=== PATIENT | male | born 1970 | race African-American/Black ===

== ENCOUNTER → 2020-03-29 14:45 | Outpatient (CLI) | payer OTHER, SELFPAY ==
--- NOTE | ~2020-03-29 | CT_ITS ---
EXAMINATION: CT abdomen w con DATE: 03/29/2020 15:17 INDICATION: Left renal mass follow-up TECHNIQUE: Computed tomography (CT) of the abdomen and pelvis was performed with 100 cc Omnipaque 350 intravenous contrast. Automated exposure control and iterative reconstruction technique were employe d. Exam dose: 785.99 mGy-cm total exam DLP. COMPARISON: 06/05/2018 CT abdomen pelvis FINDINGS: The lung bases are clear. Normal heart size. No pericardial or pleural effusion. The liver, gallbladder, bile ducts, spleen, pancreas and pancreatic duct as well as adrenal glands ap pear normal. Compared to 05/26/2018 the lateral lower pole left renal hypoattenuating mass with ill-defined margins has increased in size from approximately 14 x 20 mm to 18 x 25 mm currently. There is a hypoenhancing 2.6 cm mass of the posterolateral left mid kidney, increased in size from 1. 3 cm on 06/05/2018. MRI examination is recommended for further evaluation; hypernephroma of the lower pole of the left ki dney is suspected. 9 mm lower pole right renal probable cyst; correlation with MRI is recommended. Normal caliber of the abdominal aorta. No intraperitoneal or retroperitoneal mass lesion or adenopath y or ascites. Normal appendix. No bowel obstruction, bowel wall thickening, pneumatosis or intraperitoneal free air is evident. Small fat-containing umbilical hernia. Status post posterior and interbody spinal fusion at L3-4 Moderate degenerative disc disease at L5-S1. IMPRESSION: Suspected hypernephroma of lower pole of left kidney. Additional renal lesions are noted , possibly cysts. MRI of the kidneys is recommended for further evaluation. Reviewed, dictated and finalized at [facility]. Reviewed, dictated and finalized at location A. IMPRESSION: Suspected hypernephroma of lower pole of left kidney. Additional r enal lesions are noted, possibly cysts. MRI of the kidneys is recommended for f urther evaluation.
[2020-03-29 15:03] LABS: Estimated Glomerular Filt Rate > 60
== END ==
PROVIDERS: PCP Family Medicine Adolescent Medicine; Visit Provider Family Medicine Adolescent Medicine
DX: N28.89 Other specified disorders of kidney and ureter (principal)
CPT/HCPCS: 74160; Q9967

== ENCOUNTER 2020-09-27 15:32 | Outpatient (CLI) | payer OTHER, SELFPAY ==
--- NOTE | ~2020-09-27 | CT_ITS ---
EXAMINATION: CT abdomen wo/w con DATE: 09/27/2020 16:11 INDICATION: Left renal cell carcinoma TECHNIQUE: Computed tomography (CT) of the abdomen was performed without and with 100 cc Omnipaque 35 0 intravenous contrast. The dose-length product was 2053.91 mGy-cm. Automated exposure control and it erative reconstruction technique were employed. COMPARISON: CT dated 03/29/2020. FINDINGS: There is geographic hypodensity of the right hepatic lobe, likely fatty infiltration. No di screte mass is identified. There are surgical changes of the lower pole of the left kidney laterally, consistent with partial ne phrectomy. There is an additional low-density lesion lateral margin of the left kidney likely represe nting a resolving cyst. No definite evidence for residual malignancy. There is a small subcentimeter cysts at the lower pole the right kidney. Gallbladder is present. Nonobstructive bowel gas pattern. Unremarkable appendix, partially visualized. No free air or free fl uid. There are surgical changes in consistent with fusion in the lumbar spine at the L2-3 level. Mild scoliosis. No lytic or blastic lesions. Small fat-containing umbilical hernia. IMPRESSION: 1. Status post partial left nephrectomy. No evidence for residual/recurrent neoplasm. 2: Geographic hypodensity of the right hepatic lobe, likely fatty infiltration. Reviewed, dictated and finalized at location A. GENCY MANAGEMENT SPECIALIST IMPRESSION: 1. Status post partial left nephrectomy. No evidence for residual/recurrent [place] plasm. 2: Geographic hypodensity of the right hepatic lobe, likely fatty infiltration.
--- NOTE | ~2020-09-27 | CT_ITS ---
EXAMINATION: CT diagnostic chest wo con DATE: 09/27/2020 16:11 INDICATION: Left renal cell carcinoma. TECHNIQUE: Computed tomography (CT) of the chest was performed without intravenous contrast. The dose -length product was 830.35 mGy-cm. Automated exposure control and iterative reconstruction technique were employed. COMPARISON: Chest dated 08/24/2017 FINDINGS: No significant pleural or pericardial effusion. Heart size is normal. Enlarged right paratr acheal lymph node measures 1.4 cm. No axillary lymphadenopathy. Punctate calcified granuloma in the l eft upper lobe. No endobronchial lesions. No pneumothorax. Tiny 2 mm right minor fissural nodule like ly benign. No lytic or blastic lesions of the visualized osseous structures. No acute osseous abnorma lity. Mild dextroscoliosis. IMPRESSION: 1. Right minor fissural nodule measuring 2 mm, likely benign. Follow-up low dose CT chest in 12 month s recommended. 2: Mediastinal lymphadenopathy, nonspecific. This is most likely reactive, although metastatic diseas e is not excluded. Consider correlation with pet/CT scan. Reviewed, dictated and finalized at location [facility]. ARIAL SCIENCE PROFESSOR IMPRESSION: 1. Right minor fissural nodule measuring 2 mm, likely benign. Follow-up low dos e CT chest in 12 months recommended. 2: Mediastinal lymphadenopathy, nonspecific. This is most likely reactive, alth ough metastatic disease is not excluded. Consider correlation with pet/CT scan.
[2020-09-27 16:02] LABS: Estimated Glomerular Filt Rate > 60
== END 2020-09-27 15:33 | disposition home or self-care (01) ==
LOC: ANHIMG 15:36
PROVIDERS: PCP Family Medicine Adolescent Medicine; Visit Provider Urology
DX: C64.2 Malignant neoplasm of left kidney, except renal pelvis (principal)
CPT/HCPCS: 71250; 74170; Q9967

== ENCOUNTER 2020-10-31 13:35 | Outpatient (CLI) | payer OTHER, SELFPAY ==
--- NOTE | ~2020-10-31 | PE_ITS ---
EXAMINATION: PET skull to mid thigh DATE: 10/31/2020 15:30 INDICATION: Mediastinal lymphadenopathy. TECHNIQUE: Blood glucose level was 103 mg/dL. 10.853 mCi of 18-fluorodeoxyglucose (18-FDG) was admini stered i.v. Low dose computed tomography (CT) images were acquired from the base of the brain to the proximal thighs for attenuation correction and anatomic localization. Automated exposure control was employed. Dose-length product (DLP) was 1243 mGy-cm. Positron emission tomography (PET) images were a cquired in the same distribution. COMPARISON: Chest and abdomen CT 09/27/2020 FINDINGS: Head/neck: There is increased activity in the oral cavity, oropharynx, and glottis, and major salivar y glands without CT correlate, likely physiologic. There are no pathologically enlarged lymph nodes. Chest: The lungs demonstrate mild atelectasis. No pleural effusion. A right paratracheal node measur es 3.0 x 1.4 cm without increased activity. Cardiomegaly is noted. No pericardial effusion. There is increased activity in the bone marrow without CT correlate, likely bone marrow stimulation. Abdomen/pelvis/proximal thighs: The liver, gallbladder, spleen, pancreas, adrenal glands, and right k idney are normal. There are changes of partial left nephrectomy. There are no dilated loops of bowel. The appendix is normal. There is an umbilical hernia containing fat. Prominent fat in the inguinal c anals may be small hernias. There are no pathologically enlarged lymph nodes. There is no free intrap eritoneal fluid. The prostate is mildly enlarged. There is scarring versus inflammation in the left a nterior wall subcutaneous fat. There are changes of posterior and anterior fusion procedures in lumba r spine. There is increased activity in the bone marrow without CT correlate, likely bone marrow stim ulation. IMPRESSION: 1. Mildly enlarged mediastinal lymph node without increased activity, likely reactive. Reviewed, dictated and finalized at location A. IMPRESSION: 1. Mildly enlarged mediastinal lymph node without increased activity, likely re active.
[2020-10-31 14:01] LABS: Glucose Point of Care 103 (65-105)
== END 2020-10-31 13:36 | disposition home or self-care (01) ==
PROVIDERS: PCP Family Medicine Adolescent Medicine; Visit Provider Urology
DX: R59.1 Generalized enlarged lymph nodes (principal)
CPT/HCPCS: 78815; 82948; A9552

== ENCOUNTER 2021-10-01 14:54 | Observation (INO) | payer OTHER, SELFPAY ==
[2021-10-01] VITALS (9 sets, daily range): BP systolic 143–193; BP diastolic 84–116; PULSE 84–109; RESP 12–18; TEMP 36.4–36.7; O2SAT 96–98; BMI 35.9
--- NOTE | ~2021-10-01 | XR_ITS ---
EXAMINATION: XR chest 2V DATE: 10/01/2021 15:34 INDICATION: Dizziness. Chest wall pressure. TECHNIQUE: Frontal and lateral views of the chest were obtained. COMPARISON: Chest 2 views 08/24/2017, PET CT 10/31/2020 FINDINGS: The chest demonstrates clear lungs without pneumonia, pleural effusion, or pneumothorax. Th e heart size is normal. IMPRESSION: 1. No acute cardiopulmonary disease. Reviewed, dictated and finalized at location A.
--- NOTE | ~2021-10-01 | NM_ITS ---
EXAMINATION: NM miriam stress w perfusion DATE: 10/02/2021 14:23 INDICATION: Chest pain. TECHNIQUE: Rest images were obtained following intravenous administration of 10.3 mCi Tc99m tetrofosm in (Myoview). The patient was infused intravenously with Lexiscan (regadenoson). Then, 32.8 mCi Tc99m tetrofosmin (Myoview) was administered intravenously, and stress images were obtained. Data was carolyn nstructed into short axis and horizontal and vertical long axis SPECT images. Gated SPECT images were also obtained. COMPARISON: CT abdomen 09/27/2020 FINDINGS: There is no definite reversible or fixed perfusion abnormality to suggest ischemia or infar ction. There is no segmental wall motion abnormality. Left ventricular ejection fraction measures 6 1%. IMPRESSION: 1. No definite ischemia or infarct. 2. Normal left ventricular ejection fraction measuring 61%. Reviewed, dictated and finalized at location A.
--- NOTE | ~2021-10-01 | CT_ITS ---
EXAMINATION: CT brain wo con DATE: 10/01/2021 16:18 INDICATION: Dizziness. Headache. TECHNIQUE: Computed tomography (CT) of the head was performed without intravenous contrast. The mA wa s adjusted according to patient size. Iterative reconstruction technique was employed. The dose-lengt h product was 605.33 mGy-cm. COMPARISON: None FINDINGS: There are scattered areas of low attenuation in the cerebral white matter. There is no intr acranial hemorrhage, acute infarction, or abnormal intracranial mass lesion. The ventricles are kadeem l in size. There is mild mucosal thickening in the paranasal sinuses. The orbits are normal. The mast oid air cells are normal. IMPRESSION: 1. Mild nonspecific cerebral white matter disease, which likely represents chronic small vessel ische j luis disease. Reviewed, dictated and finalized at location A. IMPRESSION: 1. 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
--- NOTE | 2021-10-01 15:04 | ECG_ITS ---
Measurements Intervals [place] Rate: 101 P: 37 TX: 200 QRS: -3 QRSD: 89 T: 30 QT: 310 QTc: 402 Interpretive Statements SINUS TACHYCARDIA MODERATE VOLTAGE CRITERIA FOR LVH, CONSIDER NORMAL VARIANT [MEETS CRITERIA IN ONE OF: R(aVL), S(V1), R(V5), R(V5/V6)+S(V1)] NONSPECIFIC T-WAVE ABNORMALITY ABNORMAL RHYTHM ECG COMPARED TO ECG 01/31/2019 05:09:28 SINUS TACHYCARDIA NOW PRESENT T-WAVE ABNORMALITY NOW PRESENT Electronically Signed On 10-01-2021 20:28:40 CDT by Emi Arias M.D.
[2021-10-01 15:30] LABS: Basophils Absolute Auto 0.1 K/mm3 (0.0-0.1); Basophils Percent Auto 0.8 % (0.2-1.2); Eosinophils Absolute Auto 0.1 K/mm3 (0-0.3); Eosinophils Percent Auto 1.8 % (0-4.4); Hematocrit 41.3 % (42.0-52.0); Hemoglobin 14.8 g/dL (14.0-18.0); Immature Granulocyte Absolute 0.07 K/mm3 (0.00-0.031); Immature Granulocyte Percent A 1.1 % (0-0.5); Lymphocytes Absolute Auto 1.91 K/mm3 (0.9-3.2); Lymphocytes Percent Auto 29.4 % (18.3-44.2); Mean Corpuscular HGB Conc 35.8 g/dl (32-36); Mean Corpuscular Hemoglobin 30.6 pg (26-34); Mean Corpuscular Volume 85.5 fl (80-100); Mean Platelet Volume 10.1 fl (7.4-10.4); Monocytes Absolute Auto 0.6 K/mm3 (0.1-0.6); Monocytes Percent Auto 8.6 % (2.6-8.5); Neutrophils Absolute Auto 3.8 K/mm3 (1.3-6.7); Neutrophils Percent Auto 58.3 % (45.5-73.1); Nucleated Red Blood Cells Perc 0.6 % (0.0-0.2); Platelet Count Result 269 k/mm3 (150-375); Red Blood Count 4.83 M/mm3 (4.6-6.20); White Blood Count 6.5 K/mm3 (4.5-10.0)
[2021-10-01 15:38] LABS: Prothrombin Time 12.6 Seconds (11.1-14.7)
[2021-10-01 15:40] LABS: Alanine Aminotransferase 29 U/L (4-50); Albumin Level 4.6 g/dL (3.5-5.1); Alkaline Phosphatase 68 U/L (38-126); Anion Gap 8 mmol/L (8-16); Aspartate Amino Transferase 28 U/L (17-59); Bilirubin,Total 0.6 mg/dL (0.2-1.3); Blood Urea Nitrogen 14 mg/dL (9-20); Calcium 9.2 mg/dL (8.4-10.2); Carbon Dioxide 26 mmol/L (22-30); Chloride 104 mmol/L (98-107); Estimated CRCL calculation 98 ml/min; Estimated Glomerular Filt Rate > 60; Glucose 174 mg/dL (65-110); Lipase 93 U/L (23-300); Potassium 3.8 mmol/L (3.4-5.0); Sodium 138 mmol/L (137-145)
[2021-10-01 15:52] LABS: Troponin I 0.023 ng/mL (0.000-0.034)
[2021-10-01] MEDS: ASPIRIN 81 MG CHEWABLE TABLET 324 MG PO (15:52)
--- NOTE | 2021-10-01 16:39 | ED.GENADULT ---
HPI - General Adult General Chief complaint: Dizziness Stated complaint: htn Time Seen by Provider: 10/01/21 15:36 Source: patient, RN notes reviewed and old records reviewed Mode of arrival: ambulatory Limitations: no limitations History of Present Illness HPI narrative: This is a 51 year old male with history of hypertension and hyperlipidemia who presents for evaluation of elevated blood pressure, headache and chest pain. Patient states over the past 2 weeks he has felt off. He reports dull headache behind his eye and in posterior. His headache was more noticeable today so he checked his blood pressure. His blood pressure was evaluated to 160/110 so he was told to come to ER. He his headache has been constant but he states he just thought it was due to work. He also has left anterior chest pain over past few weeks. He states this pain is more noticeable with walking up stairs at home. He denies having chest pain now but he does has headache. HE denies associated nausea, vomiting, blurred vision, focal weakness. He rates headache as 7/10. He also notes his brother recently required coronary stent to be placed. Related Data Home Medications Medication Instructions Recorded Confirmed lisinopril 10 mg PO HS 10/01/21 10/01/21 pravastatin 80 mg PO HS 10/01/21 10/01/21 Allergies Allergy/AdvReac Type Severity Reaction Status Date / Time No Known Allergies Allergy Mild Verified 10/01/21 15:48 Review of Systems Review of Systems: All systems reviewed & are unremarkable except as noted in HPI and below Constitutional: Constitutional: Denies weakness Eyes: Eyes: Denies change in vision and Denies photophobia ENT: Denies nasal congestion Cardiovascular: Cardiovascular: Reports chest pain and Denies radiating jaw, neck or arm pain Respiratory: Respiratory: Denies cough and Denies dyspnea Gastrointestinal: Gastrointestinal: Denies abdominal pain, Denies diarrhea, Denies nausea and Denies vomiting Neurologic: Reports dizziness, Reports headache(s), Denies numbness and Denies weakness PMFSH Past Medical History Medical History Chronic low back pain History of renal cell cancer Hypertension Obstructive sleep apnea Pure hypercholesterolemia, unspecified Surgical History Surgical History History of lumbar surgery decompression History of vasectomy Social History Social History (Updated 10/01/21 @ 19:15 by Dana Oneal MD) Smoking status: Never smoker Exam Narrative: GENERAL: Well-appearing, well-nourished, and in no acute distress. HEAD: Normocephalic, atraumatic EYES: PERRLA and EOMI, conjunctiva clear without discharge EARS: TM's clear bilaterally without erythema or dullness NOSE: Nares clear, no rhinorrhea or epistaxis THROAT:Mucous membranes moist, Oropharynx normal without erythema, exudate, peritonsillar swelling or fluctuance NECK: Supple, without lymphadenopathy or mass RESPIRATORY: No respiratory distress, Airway patent, Respirations non-labored, Clear to auscultation without rales, rhonchi or wheeze HEART: Regular rate and rhythm. No murmur heard. Normal peripheral pulses. ABDOMEN: Soft, nontender, nondistended, normal active bowel sounds. No masses. No rebound or guarding, No organomegaly. EXTREMITIES: No edema, normal strength with full range of motion. SKIN: Warm, dry, normal color without rash NEURO: Alert and oriented x3. CN 2-12 grossly intact. No focal deficits. PSYCH: Normal mood and affect. Course Reevaluation(s) Reevaluation #1: Patient is resting comfortably. He has no complaints. He states his headache has resolved. He is agreeable to admission given high heart score for further evaluation. I Discussed case with hospitalist who accept for admission. Date: 10/01/21 Time: 17:30 Consultations Consultation #1: I discussed case with Dr. Hugo freeman
[2021-10-01 18:22] LABS: Troponin I 0.017 ng/mL (0.000-0.034)
--- NOTE | 2021-10-01 20:05 | ADMGEN ---
This patient, Bam Hui, was admitted to [facility] at 2004 as an IMU overflow. Patient/family oriented to hospital policies and general routines including ID bracelet, bed and alarms, visiting hours, pain management, procedures, bathroom and other care routines, personal items, smoking policy, room service/diet, and visiting hours. Information on how to activate the Rapid Response Team has been discussed. Patient/Family are encouraged to report perceived risks to care and to ask questions if they do not understand what they are told or what they should do.
--- NOTE | 2021-10-01 20:42 | PM.IMHP ---
H&P: HPI History of Present Illness Date/Time: 10/01/21 20:42 Chief Complaint: Chest pain. Narrative: This is a 51-year-old male with past medical history significant for dyslipidemia, hypertension. Patient presents to the emergency room due to chest pain located in the precordial area with radiation to the back in between the scapulas denies any radiation to the neck or jaw O or shoulder or left arm this happened while the patient was sitting by his computer and he was in a meeting, he denies any nausea, vomiting with it any palpitations, he was lightheaded ,no shortness of breath ,no cough ,no sputum production, no fevers, no rigors, no chills, he has been having a daily headache for the last 2 weeks or so and his blood pressure has been not well controlled. Preliminary workup was significant for blood pressure 160/100 rest of the workup has been essentially nonrevealing. Review of Systems Review of Systems: Patient presents to the emergency room due to chest pain, lightheadedness and headache Constitutional: Constitutional: Denies chills, Denies fever(s), Reports headache(s), Denies malaise and Denies night sweats Eyes: Eyes: Denies change in vision ENT: Denies dysphagia, Denies vertigo, Denies dizziness, Denies nasal discharge, Denies nasal obstruction and Denies odynophagia Cardiovascular: Cardiovascular: Reports chest pain at rest, Denies pedal edema, Denies claudication, Denies leg edema, Reports lightheadedness, Denies radiating jaw, neck or arm pain, Denies palpitations, Denies dyspnea, Denies dyspnea on exertion and Denies orthopnea Respiratory: Respiratory: Denies cough, Denies dyspnea and Denies wheezing Gastrointestinal: Gastrointestinal: Denies abdominal pain, Denies dyspepsia, Denies heartburn, Denies diarrhea, Denies nausea and Denies vomiting Genitourinary: Genitourinary: Denies dysuria and Denies flank pain Musculoskeletal: Musculoskeletal: Denies back pain, Denies arthralgias, Denies joint swelling and Denies muscle weakness Integumentary/Breasts: Skin/Breast: Denies rash Neurologic: Denies vertigo, Denies dizziness, Denies syncope, Denies focal weakness, Denies loss of vision and Denies Sensory deficit (Neuro) Psychiatric: Psychiatric: Reports no additional psychiatric complaints and Reports as per HPI Endocrine: Endocrine: Denies cold intolerance, Denies heat intolerance, Denies polyphagia, Denies polydipsia and Denies palpitations Allergic/Immunologic: Allergic/Immunologic: Reports no additional allergic/immunologic complaints and Reports as per HPI PMFSH Past Medical History Medical History Chronic low back pain History of renal cell cancer Hypertension Obstructive sleep apnea Pure hypercholesterolemia, unspecified Surgical History Surgical History History of lumbar surgery decompression History of vasectomy Family History Family History (Updated 10/01/21 @ 20:22 by Eveline Sen RN) Father Interstitial lung disease Hypertension Sibling Hypertension Post PTCA Mother Hypertension Post PTCA Myocardial infarct Social History Social History (Updated 10/01/21 @ 19:15 by Dana Oneal MD) Smoking status: Never smoker Alcohol intake: current Drinks per week: 1 Substance use: never Substance use type: does not use Spiritual care concerns: No Meds Home Medications and Allergies Home Medications Medication Instructions Recorded Confirmed Type testosterone cypionate 200 mg/mL 400 mg IM .every three weeks #8 ml 08/22/21 10/01/21 Rx intramuscular oil needle (disp) 21 G 21 gauge x 1 #3 ea 09/19/21 Rx 1/2 syringe with needle 3 mL 18 x 1 #3 ea 09/19/21 Rx 1/2 lisinopril 10 mg PO HS 10/01/21 10/01/21 History pravastatin 80 mg PO HS 10/01/21 10/01/21 History Allergies Allergy/AdvReac Type Severity Reaction Status Date / Time No Kno
[2021-10-01 21:19] LABS: Troponin I 0.023 ng/mL (0.000-0.034)
[2021-10-02] VITALS (13 sets, daily range): BP systolic 139–184; BP diastolic 89–100; PULSE 67–100; RESP 12–18; TEMP 36.2–37.1; O2SAT 95–98
--- NOTE | 2021-10-02 06:00 | ECHO_ITS ---
Patient Info Name: Bam Hui Age: 51 years : 1970 Gender: Male Ht: 76 in Wt: 295 lbs BSA: 2.72 m2 HR: 78 bpm BP: 152 / 89 mmHg Heart Rhythm: Sinus Rhythm Technical Quality: Good Exam Date: 10/02/2021 11:35 AM Exam Location: [facility] Exam Room: [facility] Patient Status: Inpatient Admit Date: 10/01/2021 Staff Ordering Physician: Dana Oneal MD [place] Worker: Pamela Rosas RDCS Attending Provider: Mar Raygoza PA-C Referring Physician: Kimmy CLEMENTS; Exam Type: CA echo doppler color flow Study Info Indications - CHEST PAIN Complete two-dimensional, color flow and Doppler transthoracic echocardiogram is performed. Summary 1. Complete two-dimensional, color flow and Doppler transthoracic echocardiogram is performed. 2. Normal left ventricular size with borderline hypertrophy. Good systolic function of all segments. Estimated ejection fraction 60-65%. No segmental wall motion abnormalities. Normal diastolic function. 3. No significant valve disease. 4. Normal sinus rhythm. Left Ventricle Left ventricular chamber dimension is normal. Left ventricular systolic function is normal, estimated at 60-65%. There is no increased left ventricular wall thickness. Left ventricular septal wall motion is normal. The left ventricular diastolic function is normal. Right Ventricle Right ventricular chamber dimension is normal. Right ventricular systolic function is normal. Left Atria Left atrial chamber dimension is normal. Right Atria Right atrial chamber dimension is normal. Aortic Valve The aortic valve is trileaflet. There is no aortic valve sclerosis. There is no aortic valve stenosis. There is no aortic valve regurgitation. Pulmonic Valve The pulmonic valve is normal. There is no pulmonic valve stenosis. There is trace pulmonic regurgitation. Mitral Valve The mitral valve has normal leaflets. There is no mitral valve stenosis. There is no mitral valve regurgitation. Tricuspid Valve The tricuspid valve leaflets are normal. There is no significant tricuspid valve stenosis. There is trace tricuspid valve regurgitation. No pulmonary hypertension, estimated pulmonary arterial systolic pressure is 26 mmHg. Pericardium/Pleural The pericardium appears normal. There is no pericardial effusion. Inferior Vena Cava Normal inferior vena cava with >50% collapse upon inspiration consistent with Empty right atrial pressure, 10 mmHg. Aorta The aortic root size at the sinus of Valsalva is normal. The prox ascending aorta size is normal. Left Ventricular Outflow Tract Name Value Normal LVOT 2D LVOT Diameter 2.2 cm LVOT Doppler LVOT Peak Gradient 3 mmHg LVOT Mean Gradient 2 mmHg LVOT VTI 17 cm LVOT VTI/AV VTI Ratio 0.8 LVOT Stroke Volume 66 ml LVOT CO 15.7 l/min LVOT CI 5.8 l/min/m2 Pulmonic Valve
--- NOTE | 2021-10-02 10:00 | PM.CNCAR ---
Assessment and Plan Additional Plan -chest pain -uncontrolled hypertension -history of hyperlipidemia -obstructive sleep apnea on CPAP -strong family history of CAD This is 51-year-old patient who presents with left chest pain, elevated blood pressure. He only takes lisinopril 10 mg daily at home. Reports strong family history of CAD. Troponins negative however EKG shows inferior Q-waves. At this time will order Lexiscan stress test to rule out ischemia. Avoid exercising due to elevated blood pressures at this time. We will add nifedipine 30 mg daily extended release titrated up as tolerated to control his blood pressure. History of Present Illness History of Present Illness Consult date/time: date of service 10/02/21 10:00 Requesting physician: Dana Oneal MD Consult reason: hypertension Reason For Visit: Hypertensive urgency, L chest pain Narrative: This is 51-year-old patient past history of hypertension, hyperlipidemia Blood pressure on admission 166/100 has been elevated during hospital stay. He states that he had headache for the last couple weeks however for the last couple days got much worse and was associated with dizziness. He was at work and was having left chest discomfort as blood pressure was elevated and therefore was advised to leave work and go and seek medical advice. He states that this left chest pain has been intermittent for the last few months. Sometimes it happens when he goes up steps. Which no radiation. Denies shortness of breath, palpitations, lower extremity edema. Never smoked cigarettes. Drinks alcohol socially. He states that heart disease runs on his mom's side and actually his brother had a stent a month ago Troponin 0.023, 0.017, 0.023 Serum creatinine 0.6 EKG reviewed analyze myself shows sinus tachycardia, LVH, inferior Q-waves Review of Systems Constitutional: Constitutional: Denies chills, Denies fever(s) and Denies poor appetite Eyes: Eyes: Denies eye discharge, Denies loss of vision, Denies eye pain and Denies photophobia ENT: Denies dizziness, Denies epistaxis, Denies nasal congestion and Denies sore throat Cardiovascular: Cardiovascular: Reports chest pain, Denies syncope, Denies pedal edema, Denies leg edema, Denies palpitations, Denies dyspnea, Denies dyspnea on exertion and Denies orthopnea Respiratory: Respiratory: Denies cough, Denies dyspnea, Denies dyspnea on exertion and Denies wheezing Gastrointestinal: Gastrointestinal: Denies abdominal pain, Denies diarrhea, Denies nausea and Denies vomiting Genitourinary: Genitourinary: Denies hematuria, Denies genital lesions and Denies dysuria Musculoskeletal: Musculoskeletal: Denies arthralgias, Denies joint swelling and Denies numbness Integumentary/Breasts: Skin/Breast: Denies pruritus and Denies rash Neurologic: Reports dizziness, Denies syncope, Denies loss of vision and Denies numbness Psychiatric: Psychiatric: Denies anxiety and Denies depression Endocrine: Endocrine: Denies cold intolerance, Denies heat intolerance and Denies palpitations Hematologic/Lymphatic: Hematologic/Lymphatic: Denies easy bleeding and Denies easy bruising Allergic/Immunologic: Allergic/Immunologic: Denies urticaria and Denies wheezing PMFSH Past Medical History Medical History (Updated 10/09/21 @ 07:11 by Alvino Schuster MD) Chronic low back pain History of renal cell cancer Hypertension Obstructive sleep apnea Pure hypercholesterolemia, unspecified Surgical History Surgical History (Updated 10/09/21 @ 07:18 by Alvino Schuster MD) History of lumbar surgery decompression History of partial nephrectomy 06/07 Left Renal cancer History of vasectomy Family History Family History Father Interstitial lung disease Hypertension Sibling Hypertension Post PTCA Mother Hypertension Post PTCA Myocardial infarct Social History Social History (
[2021-10-02] MEDS: ENOXAPARIN 40 MG/0.4 ML SYRINGE SUB-Q ×2 (10:05→10:16)
[2021-10-02] MEDS: ASPIRIN 81 MG CHEWABLE TABLET PO ×2 (10:05→10:16)
--- NOTE | 2021-10-02 10:16 | EST_ITS ---
Patient Info Name: Bam Hui Age: 51 years : 1970 Gender: Male Ht: 76 in Wt: 312 lbs BSA: 2.80 m2 Exam Date: 10/02/2021 12:53 PM Exam Location: [facility] Stress Patient Status: Inpatient Admit Date: 10/01/2021 Staff Ordering Physician: Fan Cunningham MD Attending Provider: Mar Raygoza PA-C Exercise Technologist: Lisa Childs RDCS Exercise Physician: Javan Piña DO Exam Type: CA stress miriam w NM Study Info Indications R07.9 - Chest pain, unspecified A regadenoson stress test was performed. Summary 1. No abnormal ST-T wave changes with lexiscan. 2. Nuclear test results to follow. 3. Resting hypertension. Protocol: Lexiscan Stress ECG Details Stage: REST Duration (min): 5 min : 47 sec HR (bpm): 86 SBP (mmHg): 144 DBP (mmHg): 105 Stage: REST Duration (min): 9 min : 52 sec HR (bpm): 103 SBP (mmHg): 144 DBP (mmHg): 105 Stage: STAGE 1 Duration (min): 0 min : 59 sec HR (bpm): 117 SBP (mmHg): 167 DBP (mmHg): 102 Stage: RECOVERY Duration (min): 1 min : 0 sec HR (bpm): 105 SBP (mmHg): 186 DBP (mmHg): 92 Stage: RECOVERY Duration (min): 2 min : 0 sec HR (bpm): 99 SBP (mmHg): 186 DBP (mmHg): 92 Stage: RECOVERY Duration (min): 3 min : 0 sec HR (bpm): 102 SBP (mmHg): 147 DBP (mmHg): 96 Stage: RECOVERY Duration (min): 3 min : 12 sec HR (bpm): 100 SBP (mmHg): 147 DBP (mmHg): 96 Rest HR: 103 bpm Peak HR: 121 bpm Rest Sys BP: 144 mmHg Peak Sys BP: 186 mmHg Max Pred HR: 170 bpm % Max Pred HR: 71 % Target HR: 145 bpm Max RPP: 22,506 bpm*mmHg BP Response: Patient exhibited a hypertensive response with stress Termination Reason: Completed protocol Cardiac Symptoms: None Total Time: 1 min : 0 sec Rest Romero BP: 105 mmHg Peak Romero BP: 92 mmHg Total Dose: 0.4 mg Resting ECG Normal sinus rhythm - normal ECG. Stress ECG No abnormal ST/T wave changes with exercise. Arrhythmias Occasional PVCs. Report Signatures
[2021-10-02] MEDS: NIFEdipine 30 MG TAB.ER.24 PO (10:59)
--- NOTE | 2021-10-02 15:42 | PM.IMPN ---
Progress Note: A&P Assessment and Plan (1) Chest pain: Code(s): R07.9 - Chest pain, unspecified Status: Acute Assessment and Plan: Presented with tightness in the left-sided chest wall Troponins are negative Appreciate cardiology consultation Echocardiogram is pending Q-waves noted on EKG Lexiscan stress test completed this afternoon, awaiting interpretation Aspirin 81 mg daily (2) Acute headache: Code(s): R51.9 - Headache, unspecified Status: Acute Assessment and Plan: Presented with headache ongoing for 2 weeks behind bilateral eyes and in occipital region Suspect this is secondary to uncontrolled hypertension Head CT showed mild nonspecific white matter disease with no acute findings including hemorrhage, infarct, lesion Acetaminophen as needed (3) Hypertension: Code(s): I10 - Essential (primary) hypertension Status: Chronic Assessment and Plan: Blood pressures were markedly elevated on presentation up to 190 systolic over 110s diastolic Patient has been compliant with his low-dose lisinopril 10 mg daily Continue lisinopril Started on nifedipine 30 mg daily per Cardiology recommendations. Up titrate as needed for BP control Blood pressures are improving. This afternoon, most recent BP 139/96 (4) Obstructive sleep apnea: Code(s): G47.33 - Obstructive sleep apnea (adult) (pediatric) Status: Chronic Assessment and Plan: Maintained on CPAP (5) Pure hypercholesterolemia, unspecified: Code(s): E78.00 - Pure hypercholesterolemia, unspecified Status: Chronic Assessment and Plan: Continue pravastatin Subjective Date/time seen: 10/02/21 15:42 Interval history: Date of service: 10/02/2021 Bam Hui is a 51-year-old male with a history of hypertension, PAULINE on CPAP, hyperlipidemia, and renal cell carcinoma s/p partial nephrectomy who is seen in follow-up for headache and chest pain. The patient states that he has had a low-grade headache ongoing for 2 weeks behind both eyes and in the a septal region. He states that worsened over the past 3 days and he had an episode of lightheadedness with this. He also complained of a muscle spasm between shoulder blades. He denies chest pain. Denies arm pain or jaw pain. No dizziness or lightheadedness. He does note that occasionally with small burst of activity such as hustling up a flight of steps, he will have tightness and discomfort in his left pectoral region. He also states that since May 2021 with the onset of a COVID surge, he stopped going to the gym and has since gained about 20 lb. He has become stressed regarding negative health effects from lack of exercise and weight gain and feels that he needs to get back to his old habits of exercise and dietary modifications. At this time his headache has improved but he still describes a foggy sensation and tightness, stating ?something is just off.? Denies visual changes including double vision or tunnel vision. No dysphagia. No speech changes. No palpitations. Review of Systems Review of Systems: All systems reviewed & are unremarkable except as noted in HPI and below Exam Narrative: General: Well-nourished, well-appearing 51 year-old male, sitting up in bed, comfortable, NARD Neuro: awake, alert and oriented x4, speech clear, no focal neuro deficits noted HEENMT: normocephalic, atraumatic, EOMI, sclerae anicteric, moist oral mucosa Respiratory: clear to auscultation bilaterally, nonlabored breathing Cardio: regular rate, regular rhythm with S1-S2 Abdomen: nondistended, normoactive bowel sounds, soft, nontender to palpation Extremities: no edema, erythema, or tenderness to palpation, DP pulses 2+ bilaterally Skin: no rashes or lesions, warm and dry Psych: Pleasant and cooperative, appropriate mood and affect, judgment and insight intact Objective Data Vital Signs Vital Signs: Vital Sign
[2021-10-02] MEDS: PRAVASTATIN SODIUM 20 MG TABLET 80 MG PO (21:04)
[2021-10-02] MEDS: lisinopriL 10 MG TABLET PO (21:04)
[2021-10-03] VITALS: PULSE 86; RESP 18; O2SAT 96
[2021-10-03 01:50] VITALS: PULSE 86; O2SAT 96
[2021-10-03 02:00] VITALS: PULSE 74
[2021-10-03 04:00] VITALS: BP 133/89; PULSE 74; PULSE 85; RESP 18; TEMP 36.1; O2SAT 98
[2021-10-03 05:55] LABS: Hematocrit 43.3 % (42.0-52.0); Mean Corpuscular HGB Conc 34.6 g/dl (32-36); Mean Corpuscular Hemoglobin 30.4 pg (26-34); Mean Corpuscular Volume 87.7 fl (80-100); Mean Platelet Volume 9.7 fl (7.4-10.4); Platelet Count Result 247 k/mm3 (150-375); Red Blood Count 4.94 M/mm3 (4.6-6.20); Red Cell Distribution Width 14.1 % (11.5-14.5); White Blood Count 6.3 K/mm3 (4.5-10.0)
[2021-10-03 06:00] VITALS: PULSE 78
[2021-10-03 06:02] LABS: Anion Gap 7 mmol/L (8-16); Blood Urea Nitrogen 12 mg/dL (9-20); Calcium 8.5 mg/dL (8.4-10.2); Carbon Dioxide 29 mmol/L (22-30); Chloride 101 mmol/L (98-107); Estimated CRCL calculation 101 ml/min; Estimated Glomerular Filt Rate > 60; Glucose 102 mg/dL (65-110); Potassium 3.9 mmol/L (3.4-5.0); Sodium 137 mmol/L (137-145)
[2021-10-03 08:00] VITALS: BP 126/84; PULSE 84; PULSE 85; RESP 18; TEMP 36.1; O2SAT 98
[2021-10-03] MEDS: ASPIRIN 81 MG CHEWABLE TABLET PO (09:06)
[2021-10-03] MEDS: NIFEdipine 30 MG TAB.ER.24 PO (09:06)
[2021-10-03] MEDS: ENOXAPARIN 40 MG/0.4 ML SYRINGE SUB-Q (09:07)
--- NOTE | 2021-10-03 10:29 | PM.DS ---
DS: Admitting Diagnosis Discharge Date 10/03/2021 Admitting Diagnosis Chest pain DS: Discharge Diagnosis Discharge Diagnosis (1) Chest pain: Code(s): R07.9 - Chest pain, unspecified Status: Acute Assessment and Plan: Presented with tightness in the left-sided chest wall Patient was seen in consultation by Cardiology Troponins were negative Q-waves noted on EKG, therefore Lexiscan stress test was completed. No evidence of ischemia or infarct on stress test and EF measured at 61% Echocardiogram completed. Interpretation is pending. I will contact the patient with results and he will follow-up if any further evaluation or intervention is required He has outpatient cardiology follow-up scheduled 11/26/2021 (2) Acute headache: Code(s): R51.9 - Headache, unspecified Status: Resolved Assessment and Plan: Resolved. Presented with headache ongoing for 2 weeks behind bilateral eyes and in occipital region Suspect secondary to uncontrolled hypertension Head CT showed mild nonspecific white matter disease with no acute findings including hemorrhage, infarct, lesion Acetaminophen as needed (3) Hypertension: Code(s): I10 - Essential (primary) hypertension Status: Chronic Assessment and Plan: Blood pressures were markedly elevated on presentation up to 190 systolic over 110s diastolic Patient has been compliant with his low-dose lisinopril 10 mg daily Started on nifedipine 30 mg daily per Cardiology recommendations Blood pressures improved with this regimen BP at time of discharge 08/07 126/84 Encouraged to monitor blood pressures intermittently at home and follow-up with PCP in 1 week for a BP check (4) Obstructive sleep apnea: Code(s): G47.33 - Obstructive sleep apnea (adult) (pediatric) Status: Chronic Assessment and Plan: Maintained on CPAP (5) Pure hypercholesterolemia, unspecified: Code(s): E78.00 - Pure hypercholesterolemia, unspecified Status: Chronic Assessment and Plan: Continue pravastatin DS: Summary Hospital Course Hospital Course: Date of admission: 10/01/2021 Date of discharge: 10/03/2021 Bam Hui is a 51-year-old male with a history of hypertension, PAULINE on CPAP, hyperlipidemia, and renal cell carcinoma s/p partial nephrectomy who presented to the emergency department on 10/01/2021 with complaints of persistent headache, elevated blood pressure, and left-sided chest pain. On presentation, his blood pressure was elevated at 166/100, troponins negative, and head CT showed no acute findings. Heart score 4. He was admitted to the hospitalist service for further evaluation and management and was seen in consultation by cardiology. Please see above for further details. He underwent Lexiscan stress test which showed no evidence of ischemia. His blood pressures improved with addition of nifedipine. He will continue to monitor blood pressures at home. He will follow-up with cardiology as an outpatient. The patient was feeling back to his usual state of health. Given his overall improvement, he was determined to no longer require inpatient care and was felt to be stable for discharge. Cardiology in agreement with plans. I discussed with the patient worrisome signs and symptoms for which to return and he was educated on his medications. He was discharged in hemodynamically stable condition on 10/03/2021. Time Spent with Patient Time attestation: Total time spent providing and/or coordinating discharge services: Exam Narrative: General: Well-nourished, well-appearing 51 year-old male, sitting up in bed, comfortable, NARD Neuro: awake, alert and oriented x4, speech clear, no focal neuro deficits noted HEENMT: normocephalic, atraumatic, EOMI, sclerae anicteric, moist oral mucosa Respiratory: clear to auscultation bilaterally, nonlabored breathing Cardio: regular rate, regular rhythm with S1-
--- NOTE | 2021-10-03 10:49 | PC.NURSE ---
10/03/21 10:36, discharged home. DC instructions given, patient voiced understanding.
== END 2021-10-03 10:39 | disposition home or self-care (01) ==
LOC: ANHED 19:20 → ANHCPC 19:43
PROVIDERS: Family Medicine; Physician Assistant; Admitting Provider Family Medicine; Emergency Provider General Practice; PCP Family Medicine Adolescent Medicine; Visit Provider Family Medicine
DX: R07.9 Chest pain, unspecified (principal); I16.0 Hypertensive urgency; R51.9 Headache, unspecified; R42 Dizziness and giddiness; M54.50 Low back pain, unspecified; G89.29 Other chronic pain; I10 Essential (primary) hypertension; E78.5 Hyperlipidemia, unspecified; G47.33 Obstructive sleep apnea (adult) (pediatric); Z82.49 Family history of ischemic heart disease and other diseases of the circulatory system
CPT/HCPCS: 36415; 70450; 71046; 78452; 80048; 80053; 83690; 84484; 85025; 85027; 85610; 85730; 93005; 93017; 93306; 96365; 96372; 99285; A9270; A9502; G0378; J0131; J1650; J2785

== ENCOUNTER 2022-11-13 22:43 | Emergency (ER) | payer OTHER, SELFPAY ==
[2022-11-13 22:51] VITALS: BP 189/117; PULSE 108; RESP 20; TEMP 36.3; O2SAT 96
[2022-11-13 23:03] LABS: Glucose Point of Care > 500 mg/dl (65-105)
[2022-11-13 23:21] LABS: Basophils Absolute Auto 0.1 K/mm3 (0.0-0.1); Eosinophils Absolute Auto 0.1 K/mm3 (0-0.3); Eosinophils Percent Auto 0.7 % (0-4.4); Hematocrit 48.5 % (42.0-52.0); Hemoglobin 17.1 g/dL (14.0-18.0); Immature Granulocyte Absolute 0.01 K/mm3 (0.00-0.031); Immature Granulocyte Percent A 0.1 % (0-0.5); Lymphocytes Absolute Auto 2.15 K/mm3 (0.9-3.2); Lymphocytes Percent Auto 30.3 % (18.3-44.2); Mean Corpuscular HGB Conc 35.3 g/dl (32-36); Mean Corpuscular Hemoglobin 29.3 pg (26-34); Mean Corpuscular Volume 83.2 fl (80-100); Monocytes Absolute Auto 0.6 K/mm3 (0.1-0.6); Neutrophils Absolute Auto 4.2 K/mm3 (1.3-6.7); Neutrophils Percent Auto 58.9 % (45.5-73.1); Platelet Count Result 336 k/mm3 (150-375); Red Blood Count 5.83 M/mm3 (4.6-6.20); Red Cell Distribution Width 13.4 % (11.5-14.5); White Blood Count 7.1 K/mm3 (4.5-10.0)
[2022-11-13 23:27] LABS: Appearance Urine Clear (Clear); Bacteria Urine None Seen /hpf; Bilirubin Urine Negative (Negative); Blood Urine Trace (Negative); Color Urine Yellow (Yellow); Glucose Urine UA 3+ mg/dL (Negative); Ketones Urine Negative (Negative); Leukocyte Esterase Ur Negative LEU/UL (Negative); Nitrate Urine Negative (Negative); Non Pathogenic Casts 0-2; Protein Urine Negative (Negative); RBC Urine 0-2 /hpf (0-2); Specific Grav Ur 1.033 (1.001-1.035); Squamous Epithelial Cell Urine None seen /hpf (Few); Urobilinogen Urine 0.2 mg/dL (<2.0); WBC Urine 0-5 /hpf
[2022-11-13 23:39] LABS: Add Urine Microscopic? NO
[2022-11-14] VITALS (24 sets, daily range): BP systolic 140–175; BP diastolic 95–120; PULSE 78–101; RESP 12–28; TEMP 36.4–36.8; O2SAT 95–100
--- NOTE | 2022-11-14 00:05 | PC.NURSE ---
Called lab to inquire about pending CMP. Lab states a redraw is needed. Two green tops drawn and sent to lab at this time.
[2022-11-14 00:52] LABS: Alanine Aminotransferase 32 U/L (6-50); Albumin Level 4.8 g/dL (3.5-5.1); Alkaline Phosphatase 145 U/L (38-126); Anion Gap 10 mmol/L (8-16); Aspartate Amino Transferase 37 U/L (17-59); Bilirubin,Total 1.2 mg/dL (0.2-1.3); Blood Urea Nitrogen 20 mg/dL (9-20); Calcium 9.6 mg/dL (8.4-10.2); Carbon Dioxide 29 mmol/L (22-30); Chloride 90 mmol/L (98-107); Estimated CRCL calculation 90 ml/min; Estimated Glomerular Filt Rate > 60; Glucose 648 mg/dL (65-110); Magnesium 2.1 mg/dL (1.6-2.3); Phosphorus 5.3 mg/dL (2.5-4.5); Potassium 4.4 mmol/L (3.4-5.0); Sodium 129 mmol/L (137-145)
[2022-11-14] MEDS: SODIUM CHLORIDE 0.9% IV 3,000 ML 999 ML IV CONT (01:59)
[2022-11-14] MEDS: INSULIN HUMAN REGULAR (*BKC) 100 UNITS/ML IV PUSH ×2 (02:04→04:50)
[2022-11-14 02:24] LABS: Glucose Point of Care > 500 mg/dl (65-105)
[2022-11-14 02:59] LABS: Glucose Point of Care 481 mg/dl (65-105)
[2022-11-14 04:46] LABS: Glucose Point of Care 432 mg/dl (65-105)
[2022-11-14] MEDS: SODIUM CHLORIDE 0.9% IV 1,000 ML 30 ML IV CONT (04:52)
[2022-11-14 06:30] LABS: Glucose Point of Care 352 mg/dl (65-105)
--- NOTE | 2022-11-14 06:34 | ED.RECABL ---
HPI - Recheck/Abnormal Lab/Rx General Chief Complaint: Recheck/Abnormal Lab/Rx Stated Complaint: Hyperglycemia, shaky Time Seen by Provider: 11/14/22 00:55 History of Present Illness HPI narrative: This is a 52-year-old male with past history of hypertension, who presents to the emergency department complaining of mild blurred vision, increased thirst and increased urination for the past 2 weeks. He denies any chest pain or weakness/numbness. Related Data Allergies Allergy/AdvReac Type Severity Reaction Status Date / Time No Known Allergies Allergy Mild Verified 11/13/22 22:44 Review of Systems Review of Systems: CONSTITUTIONAL: Denies fever, chills, or sweats. Increased thirst EYES: Blurred vision denies redness, or discharge. ENT: Denies rhinorrhea, congestion, sore throat, or otalgia. CARDIOVASCULAR: Denies chest pain, palpitations, or edema. RESPIRATORY: Denies cough or dyspnea. GASTROINTESTINAL: Denies abdominal pain, nausea, vomiting, or diarrhea. GENITOURINARY: Increased urination denies dysuria or hematuria. SKIN: Denies rash or itching. MUSCULOSKELETAL: Denies back pain, joint pain, or myalgia. NEUROLOGIC: Denies headache, numbness, dizziness, or weakness. PSYCHIATRIC: Denies anxiety or depression. [facility] Past Medical History Medical History Chronic low back pain History of renal cell cancer Hypertension Obstructive sleep apnea Pure hypercholesterolemia, unspecified Surgical History Surgical History History of lumbar surgery decompression History of partial nephrectomy 06/07 Left Renal cancer History of vasectomy Family History Family History Father Interstitial lung disease Hypertension Sibling Hypertension Post PTCA Heart disease Mother Hypertension Post PTCA Myocardial infarct Heart disease Social History Social History Smoking status: Never smoker Second hand tobacco smoke exposure: No Alcohol intake: current Drinks per week: 1 Substance use: never Substance use type: does not use Living arrangements: with family Occupation/Education: occupation Gender identity (if verbalized by the patient): Male Sexual Orientation (if Verbalized by the Patient): Straight or Heterosexual Spiritual care concerns: No Agree to blood products: Yes Exam Narrative: GENERAL: Well-appearing, well-nourished, and in no acute distress. HEAD: Normocephalic, atraumatic. EYES: PERRLA and EOMI. ENT: Nares clear, no rhinorrhea or epistaxis. Mucous membranes moist. Oropharynx without tonsillar hypertrophy exudate or other lesions. NECK: Supple. No adenopathy or masses. No carotid bruits or JVD CHEST: Clear to auscultation. No respiratory distress. No wheezes rales or rhonchi HEART: Regular rate and rhythm. No murmur heard. Normal peripheral pulses. ABDOMEN: Soft, nontender, nondistended, normal active bowel sounds. EXTREMITIES: Normal range of motion. No edema. SKIN: Warm, dry, no rash. NEURO: No focal deficits. Alert and oriented x3. PSYCH: Normal mood and affect. Course Course Emergency Course: 01:35 - Glucose 648 consistent with new onset diabetes. Labs are not concerning for DKA. Will give multiple saline boluses, IV insulin and monitor. 04:45 - Repeat fingerstick after fluids and IV insulin 481. Will give an additional IV insulin dose, additional liter of fluids and reassess. 06:35 - Repeat fingerstick 351. The patient states he feels much improved. Will discharge with metformin and recommendation to follow-up with his primary care doctor. Discussed return and emergency precautions including signs/symptoms of DKA and ACS. The patient voiced understanding and is comfortable with the plan. All questions answered to his satisfaction. Charisse
== END 2022-11-14 06:59 | disposition home or self-care (01) ==
PROVIDERS: Emergency Provider Preventive Medicine Aerospace Medicine; PCP Family Medicine Adolescent Medicine
DX: E11.9 Type 2 diabetes mellitus without complications (principal); I10 Essential (primary) hypertension; E78.00 Pure hypercholesterolemia, unspecified; G47.33 Obstructive sleep apnea (adult) (pediatric); Z85.528 Personal history of other malignant neoplasm of kidney; Z90.5 Acquired absence of kidney
CPT/HCPCS: 36415; 80053; 81003; 82010; 82948; 83735; 84100; 85025; 96361; 96374; 96376; 99284; J1815; J7030

== ENCOUNTER 2024-02-17 01:35 | Day surgery (SDC) | payer OTHER, SELFPAY ==
[2024-02-03 12:13] VITALS: BMI 35.3
[2024-02-17 08:31] VITALS: BP 127/88; PULSE 90; RESP 18; TEMP 36.4; O2SAT 97
[2024-02-17] MEDS: LACTATED RINGERS 1,000 ML 150 ML IV CONT (08:48)
[2024-02-17 08:49] LABS: Glucose Point of Care 110 mg/dl (65-105)
--- NOTE | 2024-02-17 08:59 | WPDANESEPPF ---
Anes - Initial Pre Proc Eval Procedure: Operation Date: 02/17/24 08:30 Proposed Procedures p Screening Colonoscopy - Hector Rosenbaum DO Date/Time: 02/17/24 08:59 Surgeon: Hector Rosenbaum DO Pre Op Diagnosis: Screening for malignant neoplasm of colon Patient Data Age: 53 Gender: M Height: 1.93 m Weight: 129.9 kg Last Vital Signs Temp 97.5 F L 02/17/24 08:31 Pulse 90 02/17/24 08:31 Resp 18 02/17/24 08:31 BP 127/88 02/17/24 08:31 Pulse Ox 97 02/17/24 08:31 O2 Del Method Room Air 02/17/24 08:31 Allergies Allergy/AdvReac Type Severity Reaction Status Date / Time NSAIDS (Non-Steroidal AdvReac Intermediate Other Verified 02/17/24 08:30 Anti-Inflamma Home Medications Medication Instructions Recorded Confirmed Type blood sugar diagnostic (FreeStyle #100 ea 11/14/22 02/03/24 Rx Test strips) blood-glucose meter (FreeStyle #1 ea 11/14/22 02/03/24 Rx Larimer kit) lancets (FreeStyle Unistik 2) #200 ea 11/14/22 02/03/24 Rx syringe with needle 3 mL 18 x 1 #10 ea 12/09/22 02/03/24 Rx 1/2 (BD Luer-Mabel Syringe) needle (disp) 21 G 21 gauge x 1 #3 ea 12/15/22 02/03/24 Rx 1/2 (BD Eclipse Luer-Mabel) pen needle, diabetic 32 gauge x #100 ea 12/16/22 02/03/24 Rx 5/32 (BD Naila 2nd Gen Pen Needle) metformin 500 mg tablet See Rx Instructions .Route 06/23/23 02/03/24 Rx .COMPLEX #180 tabs nifedipine 30 mg tablet,extended 30 mg PO QAM #30 tabs 08/22/23 02/03/24 Rx release 24 hr (Procardia XL) sildenafil 100 mg tablet See Rx Instructions .Route 10/29/23 02/03/24 Rx .COMPLEX #10 tabs pravastatin 80 mg tablet 80 mg PO HS #90 tabs 11/01/23 02/03/24 Rx testosterone cypionate 200 mg/mL 400 mg (2 mL) IM .every three 12/02/23 02/03/24 Rx intramuscular oil weeks #8 mL (Depo-Testosterone) lisinopril 10 mg tablet 10 mg PO DAILY 01/31/24 02/03/24 History insulin degludec 100 unit/mL (3 10 unit subcut DAILY 02/03/24 02/03/24 History mL) subcutaneous pen (Tresiba FlexTouch U-100 insulin) Laboratory Tests 02/17/24 08:42 POC Capillary Glucose 110 H mg/dl (65-105) Patient hx anesthesia problems: none Family hx anesthesia problems: none Results Review: All pre-operative results and documents have been reviewed as part of the pre-operative evaluation. [facility] Past Medical History Medical History (Updated 01/31/24 @ 16:37 by Curtis Courtney MD) Chronic low back pain History of renal cell cancer Hypertension Obstructive sleep apnea Pure hypercholesterolemia, unspecified Surgical History Surgical History (Updated 12/27/23 @ 09:51 by Alvino Schuster MD) History of left nephrectomy (12/2023) Papillary renal cancer History of lumbar surgery decompression History of partial nephrectomy 06/07 Left Renal cancer History of vasectomy Family History Family History Father Interstitial lung disease Hypertension Sibling Hypertension Post PTCA Heart disease Mother Hypertension Post PTCA Myocardial infarct Heart disease Social History Social History (Updated 01/31/24 @ 16:20 by Inna Short MA) Smoking status: Never smoker Second hand tobacco smoke exposure: No Alcohol intake: current Drinks per week: 2 Substance use: never Substance use type: does not use Living arrangements: other Additional living arrangements comments: with sp Occupation/Education: occupation Gender identity (if verbalized by the patient): Male Sexual Orientation (if Verbalized by the Patient): Straight or Heterosexual Spiritual care concerns: No Agree to blood products: Yes Anes - Eval Final PreProcedure Day of Procedure 02/17/24 08:59 Patient weight: normal Heart: regular rate and rhythm Lungs: clear to auscultation Airway: Mallampati scale class II Neurological: alert and oriented Last oral intake: >/= 8 hours ASA classification: III E
--- NOTE | 2024-02-17 09:11 | PM.IMHP ---
H&P: HPI History of Present Illness Date/Time: 02/17/24 09:11 Chief Complaint: Screening for colorectal cancer Narrative: this is a 53-year-old man who presents for colonoscopy. He has never had a colonoscopy before. He denies any hematochezia or melena. Denies any family history of colon cancer. Review of Systems Review of Systems: All systems reviewed & are unremarkable except as noted in HPI and below Constitutional: Constitutional: Denies chills, Denies fever(s), Denies headache(s) and Denies weight loss Eyes: Eyes: Denies change in vision ENT: Denies dizziness, Denies headache(s), Denies neck mass and Denies throat swelling Cardiovascular: Cardiovascular: Denies chest pain, Denies lightheadedness and Denies dyspnea Respiratory: Respiratory: Denies cough, Denies dyspnea and Denies wheezing Gastrointestinal: Gastrointestinal: Denies abdominal pain, Denies change in bowel habits, Denies nausea and Denies vomiting Genitourinary: Genitourinary: Denies hematuria and Denies dysuria Musculoskeletal: Musculoskeletal: Reports as per HPI Integumentary/Breasts: Skin/Breast: Reports as per HPI Neurologic: Denies dizziness and Denies headache(s) Allergic/Immunologic: Allergic/Immunologic: Denies throat swelling and Denies wheezing [facility] Past Medical History Medical History (Updated 02/17/24 @ 09:12 by Hector Rosenbaum DO) Chronic low back pain History of renal cell cancer Hypertension Obstructive sleep apnea Pure hypercholesterolemia, unspecified Surgical History Surgical History (Updated 12/27/23 @ 09:51 by Alvino Schuster MD) History of left nephrectomy (12/2023) Papillary renal cancer History of lumbar surgery decompression History of partial nephrectomy 06/07 Left Renal cancer History of vasectomy Family History Family History Father Interstitial lung disease Hypertension Sibling Hypertension Post PTCA Heart disease Mother Hypertension Post PTCA Myocardial infarct Heart disease Social History Social History (Updated 01/31/24 @ 16:20 by Inna Short MA) Smoking status: Never smoker Second hand tobacco smoke exposure: No Alcohol intake: current Drinks per week: 2 Substance use: never Substance use type: does not use Living arrangements: other Additional living arrangements comments: with sp Occupation/Education: occupation Gender identity (if verbalized by the patient): Male Sexual Orientation (if Verbalized by the Patient): Straight or Heterosexual Spiritual care concerns: No Agree to blood products: Yes Meds Home Medications and Allergies Home Medications Medication Instructions Recorded Confirmed Type blood sugar diagnostic (FreeStyle #100 11/14/22 02/03/24 Rx Test strips) blood-glucose meter (FreeStyle #1 ea 11/14/22 02/03/24 Rx [place] kit) lancets (FreeStyle [place] 2) #200 11/14/22 02/03/24 Rx syringe with needle 3 mL 18 x 1 #10 ea 12/09/22 02/03/24 Rx 1/2 (BD Luer-Mabel Syringe) needle (disp) 21 G 21 gauge x 1 #3 12/15/22 02/03/24 Rx 1/2 (BD Eclipse Luer-Mabel) pen needle, diabetic 32 gauge x #100 12/16/22 02/03/24 Rx 5/32 (BD Naila 2nd Gen Pen Needle) metformin 500 mg tablet See Rx Instructions .Route 06/23/23 02/03/24 Rx .COMPLEX #180 tabs nifedipine 30 mg tablet,extended 30 mg PO QAM #30 tabs 08/22/23 02/03/24 Rx release 24 hr (Procardia XL) sildenafil 100 mg tablet See Rx Instructions .Route 10/29/23 02/03/24 Rx .COMPLEX #10 tabs pravastatin 80 mg tablet 80 mg PO HS #90 tabs 11/01/23 02/03/24 Rx testosterone cypionate 200 mg/mL 400 mg (2 mL) IM .every three 12/02/23 02/03/24 Rx intramuscular oil weeks #8 mL (Depo-Testosterone) lisinopril 10 mg tablet 10 mg PO DAILY 01/31/24 02/03/24 History insulin degludec 100 unit/mL (3 10 unit subcut DAILY 02/03/24 02/03/24 History mL) subcutaneous pen (Tresiba Fle
[2024-02-17 09:44] VITALS: BP 110/63; PULSE 86; RESP 15; O2SAT 97
[2024-02-17 09:54] VITALS: BP 119/67; PULSE 79; RESP 22; O2SAT 100
[2024-02-17 10:04] VITALS: BP 120/74; PULSE 68; RESP 19; O2SAT 100
[2024-02-17 10:14] VITALS: BP 126/75; PULSE 75; RESP 17; O2SAT 100
== END 2024-02-17 10:22 | disposition home or self-care (01) ==
PROVIDERS: PCP Family Medicine Adolescent Medicine; Visit Provider Surgery
PROC: 0DJD8ZZ Inspection of Lower Intestinal Tract, Via Natural or Artificial Opening Endoscopic (ICD-10-PCS; CPT 45378; principal; 2024-02-17 08:30)
DX: Z12.11 Encounter for screening for malignant neoplasm of colon (principal); K57.30 Diverticulosis of large intestine without perforation or abscess without bleeding; I10 Essential (primary) hypertension; E78.00 Pure hypercholesterolemia, unspecified; G47.33 Obstructive sleep apnea (adult) (pediatric); G89.29 Other chronic pain; M54.50 Low back pain, unspecified; Z79.84 Long term (current) use of oral hypoglycemic drugs; Z79.4 Long term (current) use of insulin; Z98.890 Other specified postprocedural states; Z98.1 Arthrodesis status; Z85.528 Personal history of other malignant neoplasm of kidney; Z82.49 Family history of ischemic heart disease and other diseases of the circulatory system
CPT/HCPCS: 45378; 82948; J2704; J7120